=== PATIENT | female | born 1950 | race Caucasian/White ===

== ENCOUNTER → 2017-11-14 | Outpatient (CLI) | payer MEDICARE, OTHER ==
[~2017-11-14] MED LIST: AMILORIDE HCL-1 EACH PO; AMLODIPINE BES2.5 MG PO; ASCORBIC ACID500 M3 PO; ASPIR 8181 M1 PO; ATORVASTATIN CA20 MG PO; BACTRIM,SEPT1 TABLET PO; CALCIUM 600 +1 EAC9 PO; CELEBREX200 MG PO; CELECOXIB200 MG PO; COUMADIN1 MG PO; COUMADIN3 MG PO; CYMBALTA; Chronulac,Cephulac,Enulose 20 gm/30 ml PO; DOCUSATE SODIU100 MG PO; DOK PLUS TABLE1 EACH PO; ENDOCET 5-3251 EACH PO; FERROUS SULFAT325 MG PO; FLUOXETINE HCL20 MG PO; FOLIC ACID1 MG PO; HYDROCODON-ACE1 EAC7 PO; K-DUR20 MEQ; K-DUR20 MEQ PO; LOVENOX40 MG/0.4 SC; MELOXICAM7.5 MG PO; MOBIC7.5 MG PO; MODURETIC 5/1 TABLET PO; MULTIVITAMIN1 EAC2 PO; NORCO 5/3251 TABLET PO; OMEPRAZOLE20 M2 PO; OMEPRAZOLE20 MG; OXYCODONE HCL5 MG PO; POLYETHYLENE GL17 GM PO; PRAVASTATIN SOD20 MG; PRILOSEC; PROMETHAZINE HC25 M1 PO; SENNA-TIME S T1 EACH PO; SIMVASTATIN; SODIUM CHLORIDE1 G1 PO; ULTRAM50 MG PO; VICODIN 5-3001 EACH PO; VITAMIN C500 M1 PO; WELCHOL625 MG; XANAX0.25 MG PO; ZETIA10 MG PO; ZOFRAN ODT4 MG PO
== END | disposition home or self-care (01) ==
LOC: CDC 15:00
DX: Z01.810 Encounter for preprocedural cardiovascular examination (principal); M19.032 Primary osteoarthritis, left wrist; M25.532 Pain in left wrist; G56.02 Carpal tunnel syndrome, left upper limb; R94.31 Abnormal electrocardiogram [ECG] [EKG]
CPT/HCPCS: 93000